=== PATIENT | male | born 1955 | race Caucasian/White ===

== ENCOUNTER 2017-12-22 08:22 | Emergency (ER) | payer MEDICAID, MEDICARE ==
[2017-12-22 08:31] VITALS: BP 151/74
[2017-12-22] MEDS ORDERED: RABAVERT RABIES VACCINE(PCEC) IM ONE (09:26)
--- NOTE | 2017-12-22 09:38 | Emergency Department Report ---
ED Recheck HPI - General Chief Complaint: Medical Clearance Stated Complaint: RABIES VACCINE Time Seen by Provider: 12/22/17 09:23 Source: patient, family Mode of arrival: Ambulatory Limitations: Language Barrier - History of Present Illness Initial Comments: This is a 62-year-old male that presents with a rabies vaccine 2nd series. Patient stated that he was bitten by a dog on 12/18 last 2017 and receive his first vaccine and was instructed to return today for a repeat. Patient state he is currently still taking antibiotics and denies any pus, drainage or fever. Patient denies any other symptoms. Patient denies any chest pain, shortness of breath, numbness, tingling, headache or stiff neck. Patient denies any body aches. She denies any allergies or past medical history includes diabetes, TN and hypertension. MD Complaint: wound re-check, other (rabies vaccine) -: days(s) (4) Initial Visit For: animal bite Returns Today for: rabies shot Symptoms Since Prior Visit: no new symptoms, improved Context: planned re-check Associated Symptoms: none - Related Data Previous Rx's Medication Instructions Recorded Last Taken Type oxyCODONE /ACETAMINOPHEN [Percocet 1 tab PO Q8HR PRN #30 tablet 08/19/14 Unknown Rx 5/325] Acetaminophen/Codeine [Tylenol #3] 1 tab PO Q6H PRN #14 tab 04/06/16 Unknown Rx Allergies Allergy/AdvReac Type Severity Reaction Status Date / Time No Known Allergies Allergy Verified 08/19/14 08:54 ED Review of Systems ROS: Stated complaint: RABIES VACCINE Other details as noted in HPI Constitutional: denies: chills, fever Eyes: denies: eye pain, eye discharge, vision change ENT: denies: ear pain, throat pain Respiratory: denies: cough, shortness of breath, wheezing Cardiovascular: denies: chest pain, palpitations Endocrine: no symptoms reported Gastrointestinal: denies: abdominal pain, nausea, diarrhea Genitourinary: denies: urgency, dysuria Musculoskeletal: denies: back pain, joint swelling, arthralgia Skin: denies: rash, lesions Neurological: denies: headache, weakness, paresthesias Psychiatric: denies: anxiety, depression Hematological/Lymphatic: denies: easy bleeding, easy bruising ED Past Medical Hx - Past Medical History Previous Medical History?: Yes Hx Hypertension: Yes Hx Heart Attack/AMI: Yes (2006) Hx Diabetes: Yes Additional medical history: anemia, R arm injury 2010 - Surgical History Past Surgical History?: Yes Additional Surgical History: right shoulder - Social History Smoking Status: Never Smoker Substance Use Type: Prescribed - Medications Home Medications: Home Medications Medication Instructions Recorded Confirmed Last Taken Type oxyCODONE /ACETAMINOPHEN [Percocet 1 tab PO Q8HR PRN #30 tablet 08/19/14 Unknown Rx 5/325] Acetaminophen/Codeine [Tylenol #3] 1 tab PO Q6H PRN #14 tab 04/06/16 Unknown Rx ED Physical Exam - General Limitations: Language Barrier General appearance: alert, in no apparent distress - Head Head exam: Present: atraumatic, normocephalic - Eye Eye exam: Present: normal appearance - ENT ENT exam: Present: mucous membranes moist - Neck Neck exam: Present: normal inspection - Respiratory Respiratory exam: Present: normal lung sounds bilaterally. Absent: respiratory distress - Cardiovascular Cardiovascular Exam: Present: regular rate, normal rhythm. Absent: systolic murmur, diastolic murmur, rubs, gallop - GI/Abdominal GI/Abdominal exam: Present: soft, normal bowel sounds - Rectal Rectal exam: Present: deferred - Extremities Exam Extremities exam: Present: normal inspection, full ROM, tenderness, normal capillary refill, other (several dog bite/abrasion towards left upper extremity. No pus drainage swelling or cellulitis noted.) - Back Exam Back exam: Present: normal inspection - Neurological Exam Neurological exam: Present: alert, oriented X3 - Psychiatric Psychiatric exam: Present: normal affect, normal mood - Skin Skin exam: Present: warm, dry, intact, normal color. Absent: rash ED Course Vital Signs 12/22/17 08:27 Temperature 98.6 F Pulse Rate 76 Respiratory 20 Rate Blood Pressure 151/74 O2 Sat by Pulse 99 Oximetry - Reevaluation(s) Reevaluation #1: 12/22/17 09:35 Patient is speaking in full sentences with no signs of distress noted. Reevaluation #2: 12/22/17 09:36 Patient received rabies vaccine and was instructed to continue returning to the ER for the full serious vaccine as instructed by previous provider. Critical care attestation.: If time is entered above; I have spent that time in minutes in the direct care of this critically ill patient, excluding procedure time. ED Disposition Clinical Impression: Encounter for administration of vaccine Disposition: DC-01 TO HOME OR SELFCARE Is pt being admited?: No Does the pt Need Aspirin: No Condition: Stable Instructions: Rabies Vaccine (Injection) Additional Instructions: Follow-up with a primary care doctor in 3-5 days or if symptoms worsen and continue return to emergency room as soon as possible. Return to the ER as scheduled for the full series of vaccines from the previous provider and continue taking antibiotics as prescribed during your last visit Referrals: OMER CORTÉS MD [Primary Care Provider] - 3-5 Days PRIMARY CARE, [Referring] - 3-5 Days [facility] [Outside] - 3-5 Days [facility] [Outside] - 3-5 Days Forms: Work/School Release Form(ED)
== END 2017-12-22 10:06 | disposition home or self-care (01) ==
LOC: ED 08:22
DX: Z23 Encounter for immunization (principal)
CPT/HCPCS: 90471; 90675

== ENCOUNTER 2017-12-25 09:12 | Emergency (ER) | payer MEDICARE ==
[2017-12-25 09:27] VITALS: BP 163/76
--- NOTE | 2017-12-25 09:55 | Emergency Department Report ---
ED Recheck HPI - General Chief Complaint: Extremity Injury, Upper Stated Complaint: RE-CHECK Time Seen by Provider: 12/25/17 09:53 Source: patient, family Mode of arrival: Ambulatory Limitations: Language Barrier - History of Present Illness Initial Comments: 62-year-old male comes in today for his third rabies vaccination. Patient reports that he did follow-up with his primary care provider and they aren't helping him get into a orthopedist. Patient reports that he tried going to orthopedist but they did not take his insurance. His primary care provider ordered a MRI of his arm. Patient reports he still has quite a bit of pain. He denies any drainage or discharge or increased swelling of his wounds. MD Complaint: medication refill request, other Returns Today for: rabies shot Symptoms Since Prior Visit: no new symptoms Associated Symptoms: none - Related Data Previous Rx's Medication Instructions Recorded Last Taken Type oxyCODONE /ACETAMINOPHEN [Percocet 1 tab PO Q8HR PRN #30 tablet 08/19/14 Unknown Rx 5/325] Acetaminophen/Codeine [Tylenol 1 tab PO Q6H PRN #20 tab 12/25/17 Unknown Rx /Codeine # 3 tab] Allergies Allergy/AdvReac Type Severity Reaction Status Date / Time No Known Allergies Allergy Verified 08/19/14 08:54 ED Review of Systems ROS: Stated complaint: RE-CHECK Other details as noted in HPI ED Past Medical Hx - Past Medical History Hx Hypertension: Yes Hx Heart Attack/AMI: Yes (2006) Hx Diabetes: Yes Additional medical history: anemia, R arm injury 2010 - Surgical History Past Surgical History?: No Additional Surgical History: right shoulder - Social History Smoking Status: Never Smoker Substance Use Type: None - Medications Home Medications: Home Medications Medication Instructions Recorded Confirmed Last Taken Type oxyCODONE /ACETAMINOPHEN [Percocet 1 tab PO Q8HR PRN #30 tablet 08/19/14 Unknown Rx 5/325] Acetaminophen/Codeine [Tylenol 1 tab PO Q6H PRN #20 tab 12/25/17 Unknown Rx /Codeine # 3 tab] ED Physical Exam - General Limitations: Language Barrier General appearance: alert, in no apparent distress - Head Head exam: Present: atraumatic, normocephalic - Eye Eye exam: Present: normal appearance - ENT ENT exam: Present: mucous membranes moist - Neck Neck exam: Present: normal inspection - Respiratory Respiratory exam: Present: normal lung sounds bilaterally. Absent: respiratory distress - Cardiovascular Cardiovascular Exam: Present: regular rate, normal rhythm. Absent: systolic murmur, diastolic murmur, rubs, gallop - Extremities Exam Extremities exam: Present: other (right arm in a OCL capillary refills less than 2 seconds no increased swelling of the fingertips) - Neurological Exam Neurological exam: Present: alert, oriented X3 - Psychiatric Psychiatric exam: Present: normal affect, normal mood - Skin Skin exam: Present: warm, dry, intact, normal color. Absent: rash ED Course Vital Signs 12/25/17 09:18 Temperature 98.3 F Pulse Rate 75 Respiratory 16 Rate Blood Pressure 163/76 O2 Sat by Pulse 100 Oximetry ED Recheck MDM - Medical Decision Making Patient's been evaluated by this provider fast track. Discussed with radiologist for an addendum to his forearm x-ray at the right side. Printed out MRI results copy of x-ray placed on a disc for patient to take to his primary care provider and/or orthopedist. Prescription given for Tylenol No. 3 for pain control. Encourage patient to continue with antibiotics as prescribed he can take also [id number] ibuprofen. Patient verbalized understanding through seismic interpreter Dee. Critical care attestation.: If time is entered above; I have spent that time in minutes in the direct care of this critically ill patient, excluding procedure time. ED Disposition Clinical Impression: Encounter for administration of vaccine Disposition: DC-01 TO HOME OR SELFCARE Is pt being admited?: No Does the pt Need Aspirin: No Condition: Stable Additional Instructions: Please continue antibiotics as prescribed. Pain medication as prescribed or [id number] pain medications such as Motrin or Tylenol. Please continue follow-up with orthopedist as well as her primary care provider. Prescriptions: Acetaminophen/Codeine [Tylenol /Codeine # 3 tab] 1 tab PO Q6H PRN #20 tab PRN Reason: Pain Referrals: OMER CORTÉS MD [Primary Care Provider] - 3-5 Days [facility] [Provider Group] - 3-5 Days Forms: Work/School Release Form(ED)
[2017-12-25] MEDS ORDERED: RABAVERT RABIES VACCINE(PCEC) IM ONE (11:00)
[2017-12-25] MEDS ORDERED: NORCO 7.5/325 PO ONE (12:10)
[2017-12-25] MEDS ORDERED: NORCO 7.5/325 ONE (12:11)
== END 2017-12-25 12:26 | disposition home or self-care (01) ==
LOC: ED 09:12
DX: Z23 Encounter for immunization (principal)
CPT/HCPCS: 90471; 90675; 99282

== ENCOUNTER 2018-01-01 08:40 | Emergency (ER) | payer MEDICARE ==
[2018-01-01 11:03] VITALS: BP 148/68
--- NOTE | 2018-01-01 11:44 | Emergency Department Report ---
ED Medical Clearance HPI - General Chief complaint: Medical Clearance Stated complaint: RABIES SHOT Time Seen by Provider: 01/01/18 11:24 Source: patient Mode of arrival: Ambulatory - History of Present Illness Initial comments: 62-year-old male presents for rabies vaccination series. Patient was bitten by dog 15 days ago. Denies any pus drainage from the wounds. States there are healing normally. States that his right arm was placed in a splint secondary to refractory sustained. Patient states this would be the last vaccine in his series as he was first vaccinated approximately 2 weeks ago. 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 MD Complaint: medical clearance request Onset/Timin -: week(s) Reason for Medical Clearance: other (dog bite) Alledged Intoxication: No Compliant with Home Medications: No Treatments Prior to Arrival: none Home medications: Previous Rx's Medication Instructions Recorded Last Taken Type oxyCODONE /ACETAMINOPHEN [Percocet 1 tab PO Q8HR PRN #30 tablet 08/19/14 Unknown Rx 5/325] Acetaminophen/Codeine [Tylenol 1 tab PO Q6H PRN #20 tab 12/25/17 Unknown Rx /Codeine # 3 tab] Allergies/Adverse reactions: Allergies Allergy/AdvReac Type Severity Reaction Status Date / Time No Known Allergies Allergy Verified 08/19/14 08:54 ED Review of Systems ROS: Stated complaint: RABIES SHOT Other details as noted in HPI Constitutional: denies: chills, fever Eyes: denies: eye pain, eye discharge, vision change ENT: denies: ear pain, throat pain Respiratory: denies: cough, shortness of breath, wheezing Cardiovascular: denies: chest pain, palpitations Endocrine: no symptoms reported Gastrointestinal: denies: abdominal pain, nausea, diarrhea Genitourinary: denies: urgency, dysuria Musculoskeletal: denies: back pain, joint swelling, arthralgia Skin: denies: rash, lesions Neurological: denies: headache, weakness, paresthesias Psychiatric: denies: anxiety, depression Hematological/Lymphatic: denies: easy bleeding, easy bruising ED Past Medical Hx - Past Medical History Hx Hypertension: Yes Hx Heart Attack/AMI: Yes (2006) Hx Diabetes: Yes Additional medical history: anemia, R arm injury 2010 - Surgical History Additional Surgical History: right shoulder - Social History Smoking Status: Never Smoker Substance Use Type: None - Medications Home Medications: Home Medications Medication Instructions Recorded Confirmed Last Taken Type oxyCODONE /ACETAMINOPHEN [Percocet 1 tab PO Q8HR PRN #30 tablet 08/19/14 Unknown Rx 5/325] Acetaminophen/Codeine [Tylenol 1 tab PO Q6H PRN #20 tab 12/25/17 Unknown Rx /Codeine # 3 tab] ED Physical Exam - General Limitations: No Limitations General appearance: alert, in no apparent distress - Head Head exam: Present: atraumatic, normocephalic - Eye Eye exam: Present: normal appearance, PERRL, EOMI - ENT ENT exam: Present: mucous membranes moist - Neck Neck exam: Present: normal inspection - Respiratory Respiratory exam: Present: normal lung sounds bilaterally. Absent: respiratory distress - Cardiovascular Cardiovascular Exam: Present: regular rate, normal rhythm. Absent: systolic murmur, diastolic murmur, rubs, gallop - GI/Abdominal GI/Abdominal exam: Present: soft, normal bowel sounds - Rectal Rectal exam: Present: deferred - Extremities Exam Extremities exam: Present: normal inspection, tenderness (healing bite wounds left forearm), other (patient's right arm is in a splint as he sustained broken arm from dog bite) - Back Exam Back exam: Present: normal inspection - Neurological Exam Neurological exam: Present: alert, oriented X3, CN II-XII intact, normal gait - Psychiatric Psychiatric exam: Present: normal affect, normal mood - Skin Skin exam: Present: warm, dry, intact, normal color. Absent: rash ED Course Vital Signs 01/01/18 01/01/18 09:05 11:02 Temperature 98.2 F 98 F Pulse Rate 75 64 Respiratory 18 18 Rate Blood Pressure 152/60 Blood Pressure 148/68 [Left] O2 Sat by Pulse 100 99 Oximetry ED Medical Decision Making - Medical Decision Making A/P: Need for rabies vaccine 1-today is day 15 since incident, final rabies vaccine in series 2-pt states that he has arranged outpatient follow-up 3-no clinical signs of infection upon inspection of bite wounds left arm, patient states he has taken a course of antibiotics to mitigate infection ED Disposition Clinical Impression: Need for rabies vaccination Disposition: DC-01 TO HOME OR SELFCARE Is pt being admited?: No Does the pt Need Aspirin: No Condition: Stable Instructions: Rabies Vaccine (Injection) Referrals: [facility] [Outside] - 3-5 Days [facility] [Outside] - 3-5 Days Time of Disposition: 11:59
[2018-01-01] MEDS ORDERED: RABAVERT RABIES VACCINE(PCEC) IM ONE (12:00)
== END 2018-01-01 12:49 | disposition home or self-care (01) ==
LOC: ED 08:40
DX: Z23 Encounter for immunization (principal)
CPT/HCPCS: 90675